=== PATIENT | female | born 1950 | race Caucasian/White ===

== ENCOUNTER 2019-11-22 21:55 | Emergency (ER) | payer OTHER ==
[~2019-11-22] VITALS: Ht 154.9 cm; Wt 67.2 kg
[2019-11-22 22:49] LABS: BASOPHILS # (AUTO) 0.1 X10'3 (0-0.2); BASOPHILS % (AUTO) 0.5 % (0-1); EOSINOPHILS # (AUTO) 0.1 X10'3 (0-0.9); EOSINOPHILS % (AUTO) 1.3 % (0-6); HEMATOCRIT 42.6 % (35.0-45.0); HEMOGLOBIN 14.7 g/dl (12.0-16.0); LYMPHOCYTES # (AUTO) 4.5 X10'3 (1.1-4.8); LYMPHOCYTES % (AUTO) 40.3 % (21-51); MEAN CORPUSCULAR HEMOGLOBIN 31.4 PG (27.0-31.0); MEAN CORPUSCULAR HGB CONC 34.4 g/dL (33.0-36.5); MEAN CORPUSCULAR VOLUME 91.2 FL (78-98); MEAN PLATELET VOLUME 7.4 FL (7.4-10.4); MONOCYTES # (AUTO) 1.1 X10'3 (0-0.9); MONOCYTES % (AUTO) 9.7 % (2-12); NEUTROPHILS # (AUTO) 5.4 X10'3 (1.8-7.7); NEUTROPHILS % (AUTO) 48.2 % (42-75); PLATELET COUNT 264 X10'3 (140-440); RED BLOOD COUNT 4.67 X10'6 (4.20-5.60); WHITE BLOOD COUNT 11.2 X10'3 (4.5-11.0)
[2019-11-22 23:13] LABS: ALANINE AMINOTRANSFERASE 14 U/L (12-78); ALBUMIN 3.5 G/DL (3.4-5.0); ALBUMIN/GLOBULIN RATIO 0.9 (1.1-1.5); ALKALINE PHOSPHATASE 65 IU/L (46-116); ANION GAP 9 (8-16); ASPARTATE AMINO TRANSFERASE 12 U/L (10-37); BILIRUBIN,TOTAL 0.7 MG/DL (0.1-1.0); BLOOD UREA NITROGEN 13 MG/DL (7-18); BUN/CREATININE RATIO 15.5 (6.6-38.0); CALCIUM 8.9 MG/DL (8.5-10.1); CHLORIDE 105 MMOL/L (99-107); CREATININE 0.84 MG/DL (0.40-0.90); GLUCOSE 148 MG/DL (70-104); LIPASE 114 U/L (73-393); POTASSIUM 4.4 MMOL/L (3.5-5.1); SODIUM 142 MMOL/L (135-145); TOTAL CARBON DIOXIDE 27.6 MMOL/L (24-32); TOTAL PROTEIN 7.2 G/DL (6.4-8.2); eGFR 67 ML/MIN
--- NOTE | 2019-11-22 23:33 | NUR ---
Pt being transported via w/c to CT scan.
--- NOTE | 2019-11-22 23:54 | NUR ---
Lio Gasca for guaic of stool. Pt layed on left side. + tosin
[2019-11-23] MEDS ORDERED: metroNIDAZOLE 500mg tablet PO ONE (00:15)
[2019-11-23] MEDS ORDERED: ciprofloxacin 250mg tablet PO ONE (00:15)
[2019-11-23] MEDS ORDERED: CIPR-259 PO (00:16)
[2019-11-23] MEDS ORDERED: METR500T PO (00:16)
[2019-11-23 00:43] VITALS: BP 124/64
[2019-11-23 01:19] LABS: OCCULT BLOOD STOOL POSITIVE (Neg)
== END 2019-11-23 00:46 | disposition home or self-care (01) ==
LOC: ER 21:57
DX: K57.33 Diverticulitis of large intestine without perforation or abscess with bleeding (principal); R51 Headache; Z79.2 Long term (current) use of antibiotics; Z79.899 Other long term (current) drug therapy
CPT/HCPCS: 36415; 74176; 80053; 82272; 83690; 85025; 99284; J3490